=== PATIENT | female | born 1955 | race Caucasian/White ===

== ENCOUNTER 2021-06-21 10:36 | Emergency (ER) | payer OTHER, MEDICARE | END 2021-06-21 12:58 | disposition home or self-care (01) | LOC: CSHERS 10:36 | DX: S59.202A Unspecified physeal fracture of lower end of radius, left arm, initial encounter for closed fracture (principal); S52.612A Displaced fracture of left ulna styloid process, initial encounter for closed fracture; E11.9 Type 2 diabetes mellitus without complications; E03.9 Hypothyroidism, unspecified; M06.9 Rheumatoid arthritis, unspecified; I10 Essential (primary) hypertension; W01.0XXA Fall on same level from slipping, tripping and stumbling without subsequent striking against object, initial encounter | CPT/HCPCS: 29125 ==

== ENCOUNTER 2021-06-23 14:55 | Outpatient (CLI) | payer MEDICARE | END 2021-06-23 14:56 | disposition home or self-care (01) | LOC: CSHMRI 14:55 | PROVIDERS: ATTEND Family Medicine | DX: R42 Dizziness and giddiness (principal) | CPT/HCPCS: 70551 ==

== ENCOUNTER 2021-10-22 12:48 | Outpatient (CLI) | payer MEDICARE | END 2021-10-22 12:49 | disposition home or self-care (01) | LOC: CSHMAMMO 12:48 | DX: M81.0 Age-related osteoporosis without current pathological fracture (principal) | CPT/HCPCS: 77080 ==

== ENCOUNTER 2022-09-29 10:01 | Outpatient (CLI) | payer MEDICARE | END 2022-09-29 10:02 | disposition home or self-care (01) | LOC: CSHULT 10:01 | PROVIDERS: ATTEND Internal Medicine Gastroenterology | DX: K21.9 Gastro-esophageal reflux disease without esophagitis (principal); R11.10 Vomiting, unspecified; R19.7 Diarrhea, unspecified; R63.4 Abnormal weight loss; K76.0 Fatty (change of) liver, not elsewhere classified | CPT/HCPCS: 76700 ==

== ENCOUNTER 2022-11-11 08:37 | Emergency (ER) | payer MEDICARE | END 2022-11-11 09:50 | disposition home or self-care (01) | LOC: CSHERS 08:37 | DX: S90.32XA Contusion of left foot, initial encounter (principal); E11.9 Type 2 diabetes mellitus without complications; I10 Essential (primary) hypertension; E03.9 Hypothyroidism, unspecified; W18.30XA Fall on same level, unspecified, initial encounter ==

== ENCOUNTER 2022-11-15 09:01 | Outpatient (CLI) | payer MEDICARE ==
[2022-11-15] MEDS ORDERED: Iopamidol 300 61% 100 ML VIAL FS ONE (15:55)
== END 2022-11-15 09:02 | disposition home or self-care (01) ==
LOC: CSHCT 09:01
PROVIDERS: ATTEND Internal Medicine Gastroenterology
DX: R63.4 Abnormal weight loss (principal); R11.10 Vomiting, unspecified; R19.7 Diarrhea, unspecified; K76.0 Fatty (change of) liver, not elsewhere classified; N20.0 Calculus of kidney; N28.89 Other specified disorders of kidney and ureter; K57.30 Diverticulosis of large intestine without perforation or abscess without bleeding; Z90.710 Acquired absence of both cervix and uterus; K44.9 Diaphragmatic hernia without obstruction or gangrene
CPT/HCPCS: 74177; 82565; Q9967

== ENCOUNTER 2024-07-29 15:17 | Outpatient (CLI) | payer MEDICARE | END 2024-07-29 15:18 | disposition home or self-care (01) | LOC: CSHULT 15:17 | PROVIDERS: ATTEND Internal Medicine Endocrinology, Diabetes & Metabolism | DX: E04.1 Nontoxic single thyroid nodule (principal); E04.2 Nontoxic multinodular goiter | CPT/HCPCS: 76536 ==